=== PATIENT | male | born 1990 | race Caucasian/White ===

== ENCOUNTER 2019-01-13 12:40 | Emergency (ER) | payer SELFPAY ==
[2019-01-13] MEDS: IBUPROFEN 600 MG TAB PO (13:21)
== END 2019-01-13 14:44 | disposition home or self-care (01) ==
LOC: FTE 14:44
DX: S20.212A Contusion of left front wall of thorax, initial encounter (principal); F17.210 Nicotine dependence, cigarettes, uncomplicated; W18.39XA Other fall on same level, initial encounter; Y92.9 Unspecified place or not applicable
CPT/HCPCS: 71100; 99283-25